=== PATIENT | male | born 1970 | race Caucasian/White ===

== ENCOUNTER 2019-12-14 13:08 | Emergency (ER) | payer BC ==
[~2019-12-14] VITALS: Ht 177.8 cm; Wt 90.7 kg
[2019-12-14] MEDS ORDERED: AUGMENTIN 875-1 EACH PO (14:50)
== END 2019-12-14 14:52 | disposition home or self-care (01) ==
LOC: ED 13:08
DX: S51.852A Open bite of left forearm, initial encounter (principal); S31.150A Open bite of abdominal wall, right upper quadrant without penetration into peritoneal cavity, initial encounter; S41.152A Open bite of left upper arm, initial encounter; S61.512A Laceration without foreign body of left wrist, initial encounter; W54.0XXA Bitten by dog, initial encounter
CPT/HCPCS: 12004; 73110; 90471; 90715; 99283-25